=== PATIENT | female | born 1970 | race Caucasian/White ===

== ENCOUNTER → 2016-07-01 | Outpatient (CLI) | payer OTHER ==
[2004-10-19 23:01] VITALS: PULSE 140; TEMP 100.2
== END ==
LOC: MC.RAD 14:31
DX: Z12.31 Encounter for screening mammogram for malignant neoplasm of breast (principal)

== ENCOUNTER → 2017-09-14 | Outpatient (CLI) | payer OTHER ==
[2004-10-19 23:01] VITALS: PULSE 140; TEMP 100.2
== END ==
LOC: MC.RAD 13:56
DX: Z12.31 Encounter for screening mammogram for malignant neoplasm of breast (principal)

== ENCOUNTER → 2018-07-11 | Outpatient (CLI) | payer OTHER ==
[2004-10-19 23:01] VITALS: PULSE 140; TEMP 100.2
== END ==
LOC: COL.RAD 08:41
DX: H93.13 Tinnitus, bilateral (principal)
CPT/HCPCS: A9585

== ENCOUNTER → 2018-08-06 | Outpatient (CLI) | payer OTHER ==
[2004-10-19 23:01] VITALS: PULSE 140; TEMP 100.2
== END ==
LOC: COL.RAD 07:51
DX: M50.31 Other cervical disc degeneration, high cervical region (principal)

== ENCOUNTER → 2018-12-07 | Outpatient (CLI) | payer OTHER ==
[2004-10-19 23:01] VITALS: PULSE 140; TEMP 100.2
== END ==
LOC: MC.RAD 11:35
DX: Z12.31 Encounter for screening mammogram for malignant neoplasm of breast (principal)

== ENCOUNTER → 2020-02-21 | Outpatient (CLI) | payer OTHER ==
[2004-10-19 23:01] VITALS: PULSE 140; TEMP 100.2
== END ==
LOC: MC.RAD 13:00
DX: Z12.31 Encounter for screening mammogram for malignant neoplasm of breast (principal)

== ENCOUNTER → 2021-02-26 | Outpatient (CLI) | payer OTHER ==
[2004-10-19 23:01] VITALS: PULSE 140; TEMP 100.2
== END ==
LOC: MC.RAD 13:28
DX: Z12.31 Encounter for screening mammogram for malignant neoplasm of breast (principal)

== ENCOUNTER → 2022-03-03 | Outpatient (CLI) | payer OTHER ==
[2004-10-19 23:01] VITALS: PULSE 140; TEMP 100.2
== END ==
LOC: MC.RAD 07:00
DX: N60.02 Solitary cyst of left breast (principal)

== ENCOUNTER → 2023-06-21 | Outpatient (CLI) | payer OTHER ==
[2004-10-19 23:01] VITALS: PULSE 140; TEMP 100.2
== END ==
LOC: MC.RAD 07:00
DX: Z12.31 Encounter for screening mammogram for malignant neoplasm of breast (principal)